=== PATIENT | male | born 1940 | race Caucasian/White ===

== ENCOUNTER 2016-11-02 09:19 | Day surgery (SDC) | payer OTHER ==
[2016-10-31 10:48] LABS: BASOPHILS 0.5 %; BASOPHILS ABSOLUTE 0.05 10/3/uL (0.0-0.16); HEMATOCRIT 39.3 % (40.0-51.0); HEMOGLOBIN 12.7 g/dL (13.6-17.8); IMMATURE GRANULOCYTES 0.2 %; IMMATURE GRANULOCYTES ABSOLUTE 0.02 10/3/uL (0.0-0.11); LYMPHOCYTES 14.2 %; LYMPHOCYTES ABSOLUTE 1.41 10/3/uL (0.67-4.30); MEAN CORPUS HGB CONC 32.3 g/dL (32.0-36.0); MEAN CORPUSCULAR VOLUME 86.6 fL (80-100); MEAN PLATELET VOLUME 10.3 fL (9.2-13.0); MONOCYTES 9.4 %; MONOCYTES ABSOLUTE 0.93 10/3/uL (0.21-1.20); NEUTROPHILS 74.7 %; NEUTROPHILS ABSOLUTE 7.39 10/3/uL (2.02-8.40); PLATELET COUNT 201 10/3/uL (150-400); RBC DISTRIBUTION WIDTH 15.4 % (12.0-16.0); RED CELL COUNT 4.54 10/6/uL (4.7-6.1); WHITE BLOOD CELLS 9.9 10/3/uL (4.5-10.5)
[2016-10-31 10:50] LABS: MANUAL DIFF NO %
[2016-10-31 11:07] LABS: BUN (BLOOD UREA NITROGEN) 27 MG/DL (6-23); CALCIUM, SERUM 8.9 MG/DL (8.5-10.4); CHLORIDE, SERUM 107 MMOL/L (96-112); CO2 (CARBON DIOXIDE) 25 MMOL/L (24-34); CREATININE 1.28 MG/DL (0.70-1.30); GFR AFRICAN AMERICAN 63 ML/MIN (>=60); GFR NON AFRICAN AMERICAN 54 ML/MIN (>=60); GLUCOSE, SERUM 95 MG/DL (60-99); PFA (COL/EPI) 115 SEC (72-180); POTASSIUM, SERUM 4.7 MMOL/L (3.5-5.3); SODIUM, SERUM 142 MMOL/L (135-148)
[2016-10-31 11:08] LABS: ASCORBIC ACID (UR NOT ORDER) NEG (NEG); BILIRUBIN, URINE NEGATIVE (NEG); KETONE, URINE NEGATIVE (NEG); LEUKOCYTE ESTERASE(NOT OR LARGE (NEG); WBC (NOT ORDERED) (RFLEX) > 182 (0-5)
--- NOTE | ~2016-11-02 | OP ---
Record Of Operation [facility] [address] [place]. [address] NAME: JACQUELINE WILSON : 42 STATUS : [facility]#: [id number] AGE: 76 ADM/REG DATE : 11/02/16 MR#: [id number] REPORT SERV DATE: 11/02/16 DICTATED BY: JANET FRENCH DATE: 11/02/16 REPORT STATUS : Draft TRANSCRIBED BY: MODEbonie DATE: 11/02/16 DATE OF PROCEDURE: 11/02/2016 PREOPERATIVE DIAGNOSES: Elevated PSA, urinary retention, urinary tract infections, and right hydroureteronephrosis. POSTOPERATIVE DIAGNOSES: Elevated PSA, urinary retention, urinary tract infections, and right hydroureteronephrosis. PROCEDURE PERFORMED: Cystoscopy, right retrograde pyelogram, placement of Acevedo catheter, transrectal ultrasound with saturation biopsies of the prostate gland. SURGEON: Janet French M.D. ANESTHESIA: General. SPECIMENS: Right apex prostate cores, three. Right mid prostate cores, six. Right base prostate cores, six. Left apex prostate cores, three. Left mid prostate cores, six. Left base prostate cores, six. DRAINS: A 22-Upper Sorbian coude catheter with 15 mL in the balloon to leg bag drainage. COMPLICATIONS: None. ESTIMATED BLOOD LOSS: Minimal. DISPOSITION: To recovery room in good condition. HISTORY: This is a 76-year-old gentleman, who presented to me as a consult from the [facility] for the above-stated problems. He presented with reports and no films showing right hydroureteronephrosis to the level of the ureterovesical junction, an elevated PSA of over 5 which bridger over 3 points since March of last year. On presentation to my office, he had a catheter in place that had been there since 09/27/2016. His record stated that he had presented to the [facility] in urinary retention with a urinary tract infection. We did not have a copy of his urine culture. The patient was started on tamsulosin at that time. He presents today for the above-stated procedure. We also started him on finasteride at his initial visit. His preoperative urine culture unfortunately was drained from the bag by the patient. He was covered starting the day before surgery with Levaquin and Rocephin. He was also given a dose of vancomycin today as well as both of those medications. PROCEDURE IN DETAIL: After consent was obtained, the patient was taken to the operating room and placed on the operative table in the supine position. His catheter was removed. He was then prepped and draped in the usual sterile fashion. Examination under anesthesia revealed normal uncircumcised phallus, bilateral descended testes without masses. He did have a cyst in his right epididymal gland. Rectal exam was deferred to the transrectal ultrasound portion of the case. The primary teacher film on the table shows phleboliths in the pelvis and large Record Of Operation [place] [id number] [facility] [place]. [address] NAME: JACQUELINE WILSON : 42 STATUS : [facility]#: [id number] AGE: 76 ADM/REG DATE : 11/02/16 MR#: [id number] REPORT SERV DATE: 11/02/16 DICTATED BY: JANET FRENCH DATE: 11/02/16 REPORT STATUS : Draft TRANSCRIBED BY: MOE DATE: 11/02/16 amount of bowel contents in the upper portion of the abdomen. Cystourethroscopy was performed with 30 and 70-degree lens. He had trilobar hypertrophy of the prostate gland, but the median lobe did not project into the bladder. His bladder neck was high. His prostatic urethral length was approximately 4 cm. He had significant trabeculation of the bladder with a low bladder volume. He had numerous small diverticula, but they were wide- mouthed. No significant bladder lesions were noted. He did have some edema on the posterior wall of the bladder consistent with an indwelling catheter for the past month. The initial drainage out of the scope was cloudy, but cleared up immediately. His left ureteral orifice was in normal position and effluxed clear urine. His right ureteral orifice was located in a small diverticulum on the right lateral bladder wall. It had a very thin tunnel and a wide-mouth. It could be seen effluxing slightly cloudy urine. A right retrograde pyelogram was performed. This did show a mildly tortuous ureter which was hydronephrotic down to the distal portion. 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 Once the open ended was removed, the ureter quickly drained completely. His kidney did drain quickly about half of the x-ray dye and then slowly began accumulating urine again. At that time, we had to wait approximately 15 minutes for the fish and wildlife technician to be finished in the other room with another prostate biopsy. We readied the room for the fish and wildlife technician in that time. Once the fish and wildlife technician arrived, they performed a volume study of the prostate gland showing a prostatic volume of 22.3 mL. We then took the prostate biopsies as stated above. There were several abnormal hypoechoic areas of the prostate gland and these were biopsied sufficiently. One was at the right base and then one was at the left mid area. Once the biopsies were complete, pressure was held on the biopsy sites by the clock for 5 minutes using a lidocaine with epinephrine-soaked gauze. A hemorrhoidal sponge was then placed on the rectum. At that time, I performed a rectal exam, and this did show a right prostatic nodule at the base. The prostate was small. Hemorrhoidal sponge was placed. I then changed out my gloves and placed a Acevedo catheter. The balloon was inflated with 15 mL of sterile water. It was seated at the bladder neck. It easily irrigated and the irrigant was clear. This was placed to leg bag drainage. The patient was then awakened from his anesthetic, extubated, and taken to recovery room in good condition. PLAN: The plan will be to see him back in the office in 2 weeks for his pathology results. We will perform a fill and pull at that time. In the meantime, he will need a nuclear medicine renal scan with Lasix washout while he has the catheter in place and draining to fully evaluate the drainage of his right kidney. He will continue his Flomax and finasteride. He will finish up the antibiotics he has at home, which are Rocephin and Levaquin. He will continue to avoid his aspirin until Saturday as long as he has no bleeding. MIKE/MOE Janet French M.D. / [id number] Record Of [address] [address] NAME: JACQUELINE WILSON : 42 STATUS : [facility]#: [id number] AGE: 76 ADM/REG DATE : 11/02/16 MR#: [id number] REPORT SERV DATE: 11/02/16 DICTATED BY: JANET FRENCH DATE: 11/02/16 REPORT STATUS : Draft TRANSCRIBED BY: MOE DATE: 11/02/16 CC: Janet French M.D.
[~2016-11-02 09:19] MED LIST: ASAB PO; FLOMAX4 PO; LISINOPRIL40 MG PO; PROSCAR5 PO; VITAMIN B-625 MG PO
[2016-11-02 12:40] LABS: ASCORBIC ACID (UR NOT ORDER) NEG (NEG); BILIRUBIN, URINE NEGATIVE (NEG); KETONE, URINE 20 MG/DL (NEG); LEUKOCYTE ESTERASE(NOT OR LARGE (NEG)
[2016-11-02 12:41] LABS: WBC (NOT ORDERED) (RFLEX) > 182 (0-5)
== END 2016-11-02 16:34 | disposition home or self-care (01) ==
LOC: SDC 09:19
PROVIDERS: Urology
PROC: 0VB03ZX Excision of Prostate, Percutaneous Approach, Diagnostic (ICD-10-PCS; principal; 2016-11-02 11:45)
PROC: BT1DYZZ Fluoroscopy of Right Kidney, Ureter and Bladder using Other Contrast (ICD-10-PCS; 2016-11-02 11:45)
DX: N41.1 Chronic prostatitis (principal); N41.0 Acute prostatitis; I10 Essential (primary) hypertension; M19.90 Unspecified osteoarthritis, unspecified site
CPT/HCPCS: 76872; 76942; 80048; 81001; 85025; 85576; 87077; 87086; 87186; 88305; 93005; C1758; C1769; J0690; J2405; J3010; J3370; Q9967